=== PATIENT | female | born 2000 | race African-American/Black ===

== ENCOUNTER 2019-04-26 12:00 | Inpatient (IN) ==
[2019-04-26] MEDS ORDERED: BUTORPHANOL 2 MG/ML VIAL IV PRN (12:39)
[2019-04-26] MEDS ORDERED: DINOPROSTONE 10 MG VAG.INSERT VAG ONE (12:39)
[2019-04-26] MEDS ORDERED: BUTORPHANOL 1 MG/ML VIAL IV PRN (12:39)
[2019-04-26 12:55] LABS: Basophils % 0.2 % (0.0-0.8); Eosinophils % 0.2 % (0.00-10.9); Hematocrit 37.1 VOL% (35.7-47.0); Hemoglobin 12.5 GM/DL (12.0-16.0); Immature Granulocytes % 0.3 %; Immature Granulocytes Absolute 0.03 #; Lymphocytes # 1.6 10*3/uL (1.4-4.0); Lymphocytes % 18.5 % (21.3-54.2); Mean Corpuscular HGB Conc 33.7 GM/DL (32-36); Mean Corpuscular Volume 88.3 FL (87-102); Mean Platelet Volume 11.5 FL (9.6-12.0); Monocytes % 6.5 % (1.7-12.7); Neutrophils % 74.3 % (38.7-73.9); Platelet Count 182 T/CUMM (130-400); Red Cell Distribution Width 12.3 % (9.3-17.3); White Blood Count 8.6 T/CUMM (4-12)
[2019-04-26 13:18] LABS: Alanine Aminotransferase 38 U/L (13-56); Albumin 2.9 G/DL (3.4-5.0); Alkaline Phosphatase 93 U/L (45-117); Aspartate Amino Transferase 23 U/L (0-37); Bilirubin,Total < 0.39 MG/DL (0.2-1.0); Blood Urea Nitrogen 9 MG/DL (7-18); Calcium 8.9 MG/DL (8.5-10.1); Glucose 94 MG/DL (74-106); Osmolality,Calculated 275.5 MOS/KG (273-304); Total Protein 6.8 G/DL (6.4-8.3)
[2019-04-26 14:22] LABS: Barbiturates Screen,Urine Negative (Negative); Benzodiazepines Screen,Urine Negative (Negative); Cannabinoid Screen,Urine Positive (Negative); Opiate Screen,Urine Negative (Negative); Phencyclidine Screen,Urine Negative (Negative)
[2019-04-26] MEDS: ONDANSETRON 4 MG/2 ML VIAL IV PRN (17:57)
[2019-04-26] MEDS: LACTATED RINGERS 1,000 ML IV PRN (21:20)
[2019-04-26] MEDS ORDERED: fentaNYL 2 MCG/ROPIV 0.2% EPID 100 ML EPIDURAL SCH (23:45)
[2019-04-26] MEDS ORDERED: diphenhydrAMINE 50 MG/1 ML VIAL IV PRN ×2 (23:57)
[2019-04-26] MEDS ORDERED: NALOXONE 0.4 MG/ML VIAL IV PRN (23:57)
[2019-04-26] MEDS ORDERED: ePHEDrine 50 MG/ML AMP IV PRN (23:57)
[2019-04-26] MEDS ORDERED: LACTATED RINGERS 250 ML IV PRN (23:57)
[2019-04-27] MEDS ORDERED: CITRIC ACID/SODIUM CITRATE 30 ML UDCUP PO ONE (00:03)
[2019-04-27] MEDS ORDERED: FAMOTIDINE 20 MG/2 ML VIAL IV ONE (00:04)
[2019-04-27] MEDS ORDERED: OXYTOCIN/LR 20 UNIT/1,000 ML BAG IV SCH (01:00)
[2019-04-27 03:22] LABS: Apearance,Urine CLEAR (Clear); Bilirubin,Urine Negative (Negative); Blood, Urine Moderate mg/dL (Negative); Glucose,Urine (UA) Negative (Negative); Ketones,Urine 5 mg/dL (Negative); Mucus,Urine Occasional /LPF (Occasional); Nitrite,Urine Negative (Negative); Protein,Urine Negative; RBC,Urine 3 /HPF (0-4); Squamous Epithelial Cell,Urine Occasional /HPF (0-10); Urine Color Yellow (Yellow); Urine Specific Gravity 1.013 (1.001-1.035); Urine Urobilinogen < 2.0 EU/DL (0.2-1.0); WBC,Urine 5 /HPF (0-6)
[2019-04-27] MEDS: LACTATED RINGERS 1,000 ML IV PRN (04:00)
[2019-04-27] MEDS ORDERED: AMPICILLIN INJ 2,000 MG in SODIUM CHLORIDE 0.9% 100 ML IV ONE (05:15)
[2019-04-27] MEDS ORDERED: ceFAZolin 2,000 MG in PREMIX 1 EACH IV ONE (07:17)
[2019-04-27] MEDS ORDERED: MORPHINE 10 MG/10 ML VIAL ONE (07:18)
[2019-04-27] MEDS ORDERED: DEXAMETHASONE 4 MG/1 ML VIAL ONE (07:19)
[2019-04-27] MEDS ORDERED: LIDOCAINE MPF 2% /EPI 20 ML VIAL ONE (07:19)
[2019-04-27] MEDS ORDERED: BUPIVACAINE 0.5% 50 ML VIAL ONE (07:19)
[2019-04-27] MEDS ORDERED: EPINEPHrine 1 MG/ML VIAL ONE (07:19)
[2019-04-27] MEDS ORDERED: OXYTOCIN/LR 20 UNIT/1,000 ML BAG IV ONE ×2 (07:20→07:27)
[2019-04-27] MEDS ORDERED: TRANEXAMIC ACID 1,000 MG/10 ML VIAL ONE (07:26)
[2019-04-27] MEDS ORDERED: miSOPROStol 200 MCG TABLET ONE (07:26)
[2019-04-27] MEDS ORDERED: CARBOPROST TROMETHAMINE 250 MCG/ML AMP IM ONE (07:27)
[2019-04-27] MEDS ORDERED: METHYLERGONOVINE 0.2 MG/1 ML AMP ONE (07:27)
[2019-04-27 08:28] LABS: Cord Arterial Blood HCO3 20.1 MMOL/L
[2019-04-27 08:30] LABS: Cord Venous Blood PCO2 51.1 MMHG; Cord Venous Blood PO2 22.8 MMHG
[2019-04-27] MEDS ORDERED: AMPICILLIN INJ 2,000 MG in SODIUM CHLORIDE 0.9% 100 ML IV SCH (09:30)
[2019-04-27] MEDS ORDERED: AMPICILLIN INJ 1,000 MG in SODIUM CHLORIDE 0.9% 100 ML IV SCH (09:30)
[2019-04-27] MEDS: ONDANSETRON 4 MG/2 ML VIAL IV PRN ×2 (12:42→20:57)
[2019-04-27] MEDS ORDERED: PROMETHAZINE 25 MG/1 ML VIAL ONE (14:27)
[2019-04-27] MEDS ORDERED: PROMETHAZINE 25 MG/1 ML VIAL IM PRN (14:30)
[2019-04-27] MEDS ORDERED: RHO(D) IMMUNE GLOBULIN 300 MCG SYRINGE IM ONE (14:34)
[2019-04-27] MEDS ORDERED: SIMETHICONE CHEW 80 MG TABLET PO PRN (14:34)
[2019-04-27] MEDS ORDERED: MAGNESIUM HYDROXIDE SUSP 30 ML UDCUP PO PRN (14:34)
[2019-04-27] MEDS: KETOROLAC 30 MG/1 ML VIAL IV SCH ×2 (15:00→21:40)
[2019-04-27] MEDS ORDERED: SODIUM CHLORIDE 0.9% 50 ML IV ONE (15:37)
[2019-04-27] MEDS: ceFAZolin 1,000 MG in SYRINGE 1 EACH IV SCH (15:41)
[2019-04-27 16:27] LABS: Basophils % 0.1 % (0.0-0.8); Hematocrit 33.5 VOL% (35.7-47.0); Hemoglobin 11.4 GM/DL (12.0-16.0); Immature Granulocytes % 0.4 %; Immature Granulocytes Absolute 0.05 #; Lymphocytes # 0.8 10*3/uL (1.4-4.0); Lymphocytes % 5.8 % (21.3-54.2); Mean Corpuscular Volume 88.6 FL (87-102); Monocytes % 3.7 % (1.7-12.7); Platelet Count 157 T/CUMM (130-400); Red Blood Count 3.78 MC/CUMM (3.8-5.5); Red Cell Distribution Width 12.5 % (9.3-17.3); White Blood Count 13.4 T/CUMM (4-12)
[2019-04-27] MEDS ORDERED: LACTATED RINGERS 1,000 ML IV SCH (17:30)
[2019-04-28] MEDS: ceFAZolin 1,000 MG in SYRINGE 1 EACH IV SCH (00:30)
[2019-04-28] MEDS: KETOROLAC 30 MG/1 ML VIAL IV SCH ×2 (05:55→09:00)
[2019-04-28 06:32] LABS: Basophils % 0.2 % (0.0-0.8); Eosinophils % 0.2 % (0.00-10.9); Hematocrit 37.6 VOL% (35.7-47.0); Hemoglobin 12.4 GM/DL (12.0-16.0); Immature Granulocytes % 0.4 %; Immature Granulocytes Absolute 0.05 #; Lymphocytes # 2.8 10*3/uL (1.4-4.0); Lymphocytes % 23.2 % (21.3-54.2); Mean Corpuscular Volume 90.4 FL (87-102); Mean Platelet Volume 11.7 FL (9.6-12.0); Monocytes % 8.1 % (1.7-12.7); Neutrophils % 67.9 % (38.7-73.9); Platelet Count 167 T/CUMM (130-400); Red Blood Count 4.16 MC/CUMM (3.8-5.5); Red Cell Distribution Width 12.6 % (9.3-17.3)
[2019-04-28] MEDS: MULTIVITAMIN (PRENATAL) TABLET PO SCH (09:21)
[2019-04-28] MEDS: DOCUSATE SODIUM 100 MG CAPSULE PO SCH ×2 (09:21→20:49)
[2019-04-28] MEDS: IBUPROFEN 800 MG TABLET PO SCH ×2 (13:26→19:59)
[2019-04-29] MEDS: IBUPROFEN 800 MG TABLET PO SCH ×3 (02:20→18:44)
[2019-04-29] MEDS: MULTIVITAMIN (PRENATAL) TABLET PO SCH (11:47)
[2019-04-29] MEDS: DOCUSATE SODIUM 100 MG CAPSULE PO SCH ×2 (11:47→21:17)
[2019-04-30] MEDS: IBUPROFEN 800 MG TABLET PO SCH ×2 (04:16→19:09)
[2019-04-30] MEDS: DOCUSATE SODIUM 100 MG CAPSULE PO SCH (09:04)
[2019-04-30] MEDS: MULTIVITAMIN (PRENATAL) TABLET PO SCH (09:04)
[2019-04-30 09:34] VITALS: BP 122/72
[2019-04-30] MEDS ORDERED: DIPH/TET/ACEL PERT BOOSTER VACCINE 0.5 ML VIAL IM ONE ×2 (10:13→10:15)
== END 2019-04-30 15:00 | disposition home or self-care (01) | DRG 540 ==
LOC: N.LDOUT 12:00 → N.LD 12:04 → N.OB 04-27 14:29
PROVIDERS: ADMIT Obstetrics & Gynecology; ATTEND Obstetrics & Gynecology
PROC: LDCSECT (ICD-10-PCS; 2019-04-27 08:00)

== ENCOUNTER 2021-08-10 10:16 | Inpatient (IN) ==
[2021-08-10 10:51] LABS: Bacteria,Urine Occasional /HPF (Few); Bilirubin,Urine Negative (Negative); Blood, Urine Moderate mg/dL (Negative); Glucose,Urine (UA) Negative (Negative); Ketones,Urine Negative (Negative); Nitrite,Urine Negative (Negative); Protein,Urine Negative; RBC,Urine 18 /HPF (0-4); Squamous Epithelial Cell,Urine Occasional /HPF (0-10); Urine Appearance CLOUDY (Clear); Urine Color Yellow (Yellow); Urine Specific Gravity 1.015 (1.001-1.035); Urine Urobilinogen < 2.0 EU/DL (0.2-1.0)
[2021-08-10] MEDS: LACTATED RINGERS 1,000 ML IV SCH ×3 (11:05→20:13)
[2021-08-10] MEDS ORDERED: BUTORPHANOL 1 MG/ML VIAL IV ONE ×2 (11:11)
[2021-08-10] MEDS: TERBUTALINE 1 MG/1 ML VIAL SUBCUT PRN ×2 (11:13→13:34)
[2021-08-10] MEDS ORDERED: BUTORPHANOL 2 MG/ML VIAL ONE (11:16)
[2021-08-10] MEDS ORDERED: ONDANSETRON 4 MG/2 ML VIAL IV PRN ×2 (13:03→13:14)
[2021-08-10] MEDS ORDERED: NIFEdipine 10 MG CAPSULE PO ONE ×6 (14:10→23:00)
[2021-08-10] MEDS: SIMETHICONE CHEW 80 MG TABLET PO PRN (15:15)
[2021-08-10] MEDS: ACETAMINOPHEN 500 MG TABLET PO PRN (18:34)
[2021-08-10] MEDS: NIFEdipine 10 MG CAPSULE PO SCH (20:00)
[2021-08-10] MEDS ORDERED: BUTORPHANOL 2 MG/ML VIAL IV PRN (20:11)
[2021-08-10 20:27] LABS: Barbiturates Screen,Urine Negative (Negative); Benzodiazepines Screen,Urine Negative (Negative); Cannabinoid Screen,Urine Negative (Negative); Opiate Screen,Urine Negative (Negative); Phencyclidine Screen,Urine Negative (Negative)
[2021-08-10] MEDS ORDERED: CITRIC ACID/SODIUM CITRATE 30 ML UDCUP PO PRN (21:17)
[2021-08-10] MEDS ORDERED: FAMOTIDINE 20 MG/2 ML VIAL IV PRN (21:18)
[2021-08-10] MEDS ORDERED: OXYTOCIN/LR 20 UNIT/1,000 ML BAG IV PRN (21:20)
[2021-08-10] MEDS ORDERED: NIFEdipine 10 MG CAPSULE PO PRN (22:34)
[2021-08-11] MEDS: NIFEdipine 10 MG CAPSULE PO SCH ×3 (00:10→08:06)
[2021-08-11] MEDS: ACETAMINOPHEN 500 MG TABLET PO PRN (02:56)
[2021-08-11] MEDS: LACTATED RINGERS 1,000 ML IV SCH ×2 (07:33→13:01)
[2021-08-11] MEDS ORDERED: LACTATED RINGERS 1,000 ML IV SCH ×2 (11:00→17:00)
[2021-08-11] MEDS ORDERED: miSOPROStoL 200 MCG TABLET ONE (11:19)
[2021-08-11] MEDS ORDERED: OXYTOCIN/LR 20 UNIT/1,000 ML BAG IV ONE ×2 (11:19→16:34)
[2021-08-11] MEDS ORDERED: METHYLERGONOVINE 0.2 MG/1 ML AMP ONE (11:19)
[2021-08-11] MEDS ORDERED: CARBOPROST TROMETHAMINE 250 MCG/ML AMP IM ONE (11:19)
[2021-08-11 11:23] LABS: Basophils % 0.1 % (0.0-0.8); Eosinophils % 0.3 % (0.00-10.9); Hematocrit 35.5 VOL% (35.7-47.0); Immature Granulocytes % 0.4 %; Immature Granulocytes Absolute 0.03 #; Lymphocytes # 1.4 10*3/uL (1.4-4.0); Lymphocytes % 20.2 % (21.3-54.2); Mean Corpuscular HGB Conc 33.8 GM/DL (32-36); Mean Corpuscular Volume 89.4 FL (87-102); Mean Platelet Volume 11.3 FL (9.6-12.0); Monocytes % 6.7 % (1.7-12.7); Neutrophils % 72.3 % (38.7-73.9); Platelet Count 154 T/CUMM (130-400); Red Blood Count 3.97 MC/CUMM (3.8-5.5); Red Cell Distribution Width 12.9 % (9.3-17.3)
[2021-08-11 11:49] LABS: Albumin 2.3 G/DL (3.4-5.0); Bilirubin,Total 0.4 MG/DL (0.20-1.00); Calcium 8.2 MG/DL (8.5-10.1); Osmolality,Calculated 272.5 MOS/KG (273-304); Potassium 3.9 MMOL/L (3.5-5.1); Total Protein 6.3 G/DL (6.4-8.2)
[2021-08-11] MEDS: ceFAZolin 2,000 MG/50 ML DUPLEX IV PRN (15:40)
[2021-08-11] MEDS ORDERED: BUPIVACAINE SPINAL 0.75% 2 ML AMP SPINAL ONE (15:48)
[2021-08-11] MEDS ORDERED: PHENYLEPHRINE 1 MG/10 ML SYRINGE IV ONE (16:03)
[2021-08-11] MEDS ORDERED: ePHEDrine 50 MG/ML VIAL ONE (16:06)
[2021-08-11] MEDS ORDERED: propofoL 200 MG/20 ML VIAL IV ONE (16:13)
[2021-08-11] MEDS ORDERED: LIDOCAINE 2% 5 ML VIAL ONE (16:13)
[2021-08-11 16:26] LABS: Bilirubin,Urine Negative (Negative); Blood, Urine Negative (Negative); Glucose,Urine (UA) Negative (Negative); Ketones,Urine 5 mg/dL (Negative); Nitrite,Urine Negative (Negative); Protein,Urine Negative; RBC,Urine <1 /HPF (0-4); Urine Appearance CLEAR (Clear); Urine Color Yellow (Yellow); Urine Specific Gravity 1.015 (1.001-1.035); Urine Urobilinogen < 2.0 EU/DL (0.2-1.0)
[2021-08-11] MEDS ORDERED: MAGNESIUM HYDROXIDE SUSP 30 ML UDCUP PO PRN (16:34)
[2021-08-11] MEDS ORDERED: RHO(D) IMMUNE GLOBULIN 300 MCG SYRINGE IM ONE (16:34)
[2021-08-11] MEDS ORDERED: ONDANSETRON 4 MG/2 ML VIAL IV PRN (16:34)
[2021-08-11] MEDS ORDERED: ACETAMINOPHEN 325 MG TABLET PO PRN (16:34)
[2021-08-11] MEDS ORDERED: SIMETHICONE CHEW 80 MG TABLET PO PRN (16:34)
[2021-08-11 16:41] LABS: Cord Venous Blood HCO3 23.7 MMOL/L; Cord Venous Blood PCO2 42.6 MMHG; Cord Venous Blood PO2 33.9
[2021-08-11 16:45] LABS: Cord Arterial Blood HCO3 22.2 MMOL/L
[2021-08-11] MEDS: ACETAMINOPHEN 500 MG TABLET PO SCH ×2 (18:36→23:47)
[2021-08-11] MEDS: KETOROLAC 30 MG/1 ML VIAL IV SCH ×2 (18:38→23:49)
[2021-08-11] MEDS ORDERED: HYDROmorphone 2 MG/1 ML VIAL IV PRN (19:05)
[2021-08-11 19:42] LABS: Alanine Aminotransferase 25 U/L (13-56); Albumin 2.5 G/DL (3.4-5.0); Alkaline Phosphatase 159 U/L (45-117); Aspartate Amino Transferase 28 U/L (0-37); Bilirubin,Direct < 0.100 MG/DL (0.0-0.20); Bilirubin,Total < 0.39 MG/DL (0.20-1.00); Blood Urea Nitrogen 8 MG/DL (7-18); Calcium 8.2 MG/DL (8.5-10.1); Carbon Dioxide 23 MMOL/L (21-32); Estimated Glom Filtration Rate 121 ML/MIN; Glucose 72 MG/DL (74-106); Potassium 3.8 MMOL/L (3.5-5.1); Sodium 136 MMOL/L (136-145); Total Protein 6.5 G/DL (6.4-8.2); Uric Acid 5.6 MG/DL (2.6-6.0)
[2021-08-11 19:57] LABS: INR 0.9; PT Patient Result 10.1 SECS (10.5-12.0); Partial Thromboplastin Time 27.7 SECS (23.9-33.8)
[2021-08-11 20:29] LABS: Protein/Creatinine Ratio,Urine 0.2 RATIO
[2021-08-11] MEDS: DOCUSATE SODIUM 100 MG CAPSULE PO SCH (23:11)
[2021-08-12 00:53] LABS: Basophils % 0.1 % (0.0-0.8); Hematocrit 33.4 VOL% (35.7-47.0); Hemoglobin 11.5 GM/DL (12.0-16.0); Immature Granulocytes % 1.6 %; Immature Granulocytes Absolute 0.16 #; Lymphocytes # 0.7 10*3/uL (1.4-4.0); Lymphocytes % 6.6 % (21.3-54.2); Mean Corpuscular HGB Conc 34.4 GM/DL (32-36); Mean Corpuscular Volume 89.3 FL (87-102); Mean Platelet Volume 11.4 FL (9.6-12.0); Monocytes % 2.5 % (1.7-12.7); Neutrophils % 89.2 % (38.7-73.9); Platelet Count 153 T/CUMM (130-400); Red Blood Count 3.74 MC/CUMM (3.8-5.5); Red Cell Distribution Width 12.6 % (9.3-17.3)
[2021-08-12] MEDS: KETOROLAC 30 MG/1 ML VIAL IV SCH ×2 (05:31→12:29)
[2021-08-12] MEDS: ACETAMINOPHEN 500 MG TABLET PO SCH ×2 (05:32→12:33)
[2021-08-12 05:43] LABS: Basophils % 0.1 % (0.0-0.8); Hematocrit 32.9 VOL% (35.7-47.0); Hemoglobin 11.2 GM/DL (12.0-16.0); Immature Granulocytes % 0.3 %; Immature Granulocytes Absolute 0.03 #; Lymphocytes # 1.2 10*3/uL (1.4-4.0); Lymphocytes % 12.9 % (21.3-54.2); Mean Corpuscular Volume 88.7 FL (87-102); Mean Platelet Volume 11.5 FL (9.6-12.0); Monocytes % 7.4 % (1.7-12.7); Neutrophils % 79.3 % (38.7-73.9); Platelet Count 143 T/CUMM (130-400); Red Blood Count 3.71 MC/CUMM (3.8-5.5); Red Cell Distribution Width 12.6 % (9.3-17.3); White Blood Count 9.2 T/CUMM (4-12)
[2021-08-12] MEDS: ceFAZolin 2,000 MG/50 ML DUPLEX IV PRN ×2 (07:41→07:44)
[2021-08-12] MEDS: MULTIVITAMIN (PRENATAL) TABLET PO SCH (09:10)
[2021-08-12] MEDS: DOCUSATE SODIUM 100 MG CAPSULE PO SCH ×2 (09:10→21:07)
[2021-08-12] MEDS ORDERED: cefTRIAXone 250 MG VIAL IM ONE (12:00)
[2021-08-12] MEDS: IBUPROFEN 800 MG TABLET PO PRN (18:26)
[2021-08-13] MEDS: SIMETHICONE CHEW 80 MG TABLET PO PRN (08:26)
[2021-08-13] MEDS: MULTIVITAMIN (PRENATAL) TABLET PO SCH (09:50)
[2021-08-13] MEDS: DOCUSATE SODIUM 100 MG CAPSULE PO SCH (09:51)
[2021-08-13 10:10] VITALS: BP 136/85
[2021-08-13] MEDS: IBUPROFEN 800 MG TABLET PO PRN (10:31)
== END 2021-08-13 13:15 | disposition home or self-care (01) | DRG 540 ==
LOC: N.LDOUT 10:16 → N.LD 10:18 → N.OB 08-11 22:45
PROVIDERS: ADMIT Obstetrics & Gynecology; ATTEND Obstetrics & Gynecology
PROC: LDCSECT (ICD-10-PCS; 2021-08-11 12:30)